=== PATIENT | male | born 1965 | race Caucasian/White ===

== ENCOUNTER 2019-07-27 15:48 | Emergency (ER) | payer BC, OTHER ==
[2019-07-27 17:27] LABS: Influenza A Molecular Negative (Negative); Influenza B Molecular Negative (Negative)
--- NOTE | 2019-07-27 17:28 | UC ---
[facility] HPI HPI Summary: 54-year-old male comes in for telehealth visit for influenza-like symptoms for 2 weeks. Has had a headache body aches chills. Also mild congestion with chest tightness. Reports fatigue. Reports fever as high as 101. Patient's son and have similar symptoms. The patient's son's girl friend's mother is positive for Covid. Telehealth PMH Previously Healthy: Yes GI History: Reports: Hx Gastroesophageal Reflux Disease Infectious Disease History: No - Family History Known Family History: Positive: Non-Contributory - Social History Alcohol Use: Rare Substance Use Type: Reports: None Smoking Status (MU): Former Smoker Length of Time of Smoking/Using Tobacco: "Social Smoker" [facility] ROS All Other Systems Reviewed And Are Negative: Yes Positive: Fever, Fatigue, Other - see hpi Positive: Nasal Discharge Cardiovascular: Negative Positive: Shortness Of Breath - see hpi Positive: Myalgia Skin: Negative Neurological/Mental Status: Negative Positive: Headache Psychological: [facility] Physical Exam: This is a telemetry health visit performed to minimize disease transmission which does limit physical examination. Appearance: Positive: Alert and Oriented, No Pain Distress, Ill-Appearing - mild Skin: Positive: Skin Color Reflects Adequate Perfusion Neck: Positive: Supple Respiratory/Lung Sounds: Positive: Normal Respiratory Effort Cardiovascular: Positive: Skin Color Reflects Adequate Perfusion Neurological: Positive: Alert, Oriented to Person Place, Time Psychiatric: Positive: Normal [facility] Course/Dx Assessment/Plan: Influenza is negative. Covid was tested. Patient is to be an self-isolation until released. I discussed with the patient that if he gets short of breath to get further evaluation. Provider Diagnoses: Influ[facility]-like illness, [facility] Provider Recommendation for Treatment: [facility] Telehealth Visit: Patient Consented Verbally to Telehealth Visit Telehealth Patient Statement: The patient should understand that they are communicating with their provider via a secure communication platform and that all the same privacy and confidentiality rules apply. They will also be responsible for copayments or coinsurances that apply to any Telehealth visit. Patient Identifiers: 2 Patient Identifiers Verified for Telehealth Visit Telehealth Visit Start Time: 16:50 Telehealth Visit End Time: 17:35 Telehealth Provider Attestation: The above services were appropriate to provide in a Telehealth setting.
--- NOTE | 2019-07-31 08:29 | UC ---
- Progress Note Progress Note: Labs reviewed: Covid 19 undetected RN to inform patient of the lab results. Course/Dx - Diagnoses Provider Diagnoses: Influenza-like illness, Fever Discharge ED - Sign-Out/Discharge Documenting (check all that apply): Post-Discharge Follow Up All imaging exams completed and their final reports reviewed: No Studies - Discharge Plan Condition: Stable Disposition: HOME Patient Education Materials: Fever in Adults (ED), Viral Syndrome (ED) Forms: COVID-19 Tested & Isolation Referrals: Ky Sanabria MD [Primary Care Provider] - Additional Instructions: MAINTAIN AT HOME ISOLATION. FOLLOW UP WITH YOUR DOCTOR IF NOT COMPLETELY IMPROVED. GO TO THE EMERGENCY DEPARTMENT IF WORSE; SHORTNESS OF BREATH OR ANY QUESTIONS OR CONCERNS. - Billing Disposition and Condition Condition: STABLE Disposition: Home
== END 2019-07-27 17:45 | disposition home or self-care (01) ==
LOC: UCCORT 15:48
DX: R51 Headache (principal); M79.10 Myalgia, unspecified site; R50.9 Fever, unspecified; R07.89 Other chest pain; R53.83 Other fatigue; R09.89 Other specified symptoms and signs involving the circulatory and respiratory systems; Z20.828 Contact with and (suspected) exposure to other viral communicable diseases; K21.9 Gastro-esophageal reflux disease without esophagitis; Z79.899 Other long term (current) drug therapy
CPT/HCPCS: 87635; 99201; G0463; Q3014